=== PATIENT | female | born 1925 | race Caucasian/White ===

== ENCOUNTER 2017-11-27 18:42 | Emergency (ER) | payer MEDICARE, OTHER ==
[~2017-11-27] VITALS: Ht 167.6 cm; Wt 76.8 kg
[~2017-11-27 18:42] MED LIST: AMLODIPINE BESY10 MG PO; AMOXICILLIN500 M1 PO; ARICEPT 5 MG TAB5 MG PO; ASPIRIN325 PO; AZITHROMYCIN 2250 MG PO; CALCIUM 500 +1 EAC5 PO; CARDIZEM CD240 MG PO; CEFDINIR300 MG PO; CEFTIN 250250 MG/52 PO; COZAAR 25 MG TA25 M1 PO; CRANBERRY250 MG PO; DEPAKOTE 250MG250 M1 PO; DONEPEZIL HCL 55 M1 PO; FIBER-LAX625 MG PO; FLORASTOR250 MG PO; KEPPRA 500 MG500 M1 PO; LEVAQUIN 250 M250 MG PO; NORCO 5-325 TA1 EACH PO; NORTRIPTYLINE H25 M3 PO; PAMELOR25 MG PO; RISPERDAL0.5 MG PO; SENOKOT-S1 TA1 PO; TYLENOL325 MG PO; WELLBUTRIN 75 M75 M1 PO
[2017-11-27 19:12] LABS: ABSOLUTE BASOPHILS 0.1 thou/uL (0.0-0.2); ABSOLUTE EOSINOPHILS 0.4 thou/uL (0.0-0.7); ABSOLUTE LYMPHOCYTES 1.6 thou/uL (0.8-5.3); ABSOLUTE MONOCYTES 0.6 thou/uL (0.0-1.2); ABSOLUTE NEUTROPHILS 3.8 thou/uL (1.6-8.1); BASOPHILS 0.9 %; EOSINOPHILS 5.6 %; HEMATOCRIT 40.4 % (37.0-47.0); HEMOGLOBIN 13.1 gm/dL (12.0-15.0); LYMPHOCYTES 24.6 %; MCH 28.2 pg (26.0-34.0); MCHC 32.5 g/dL (28.0-37.0); MCV 86.8 fL (80.0-100.0); MONOCYTES 9.9 %; MPV 7.5 fl. (7.2-11.1); NUCLEATED RBCS 0 /100WBC; PLATELET COUNT* 281 thou/uL (150-400); RBC 4.65 mil/uL (4.20-5.00); RDW-CV 15.3 % (10.5-14.5); WBC 6.5 thou/uL (4.0-11.0)
[2017-11-27 19:17] LABS: ANION GAP 5 mmol/L (7-16); BUN 19 mg/dL (7-18); CALCIUM 9.3 mg/dL (8.5-10.1); CHLORIDE 107 mmol/L (98-107); CO2 31 mmol/L (21-32); GLUCOSE 154 mg/dL (70-99); POTASSIUM 3.6 mmol/L (3.5-5.1); SODIUM 143 mmol/L (136-145)
[2017-11-27 19:24] LABS: ALBUMIN 3.2 g/dL (3.4-5.0); ALKALINE PHOSPHATASE 128 U/L (46-116); SGOT 17 U/L (15-37); SGPT 18 U/L (30-65); TOTAL BILIRUBIN 0.1 mg/dL (<0.1-1.0); TOTAL PROTEIN 7.2 g/dL (6.4-8.2); TROPONIN-I LEVEL <0.06 ng/mL (<0.06)
[2017-11-27 19:26] LABS: SALICYLATE < 2.8 mg/dL (2.8-20.0)
[2017-11-27 19:32] LABS: URINE BILIRUBIN NEGATIVE (Negative); URINE BLOOD NEGATIVE (Negative); URINE CLARITY CLEAR; URINE COLOR YELLOW; URINE GLUCOSE-RANDOM NEGATIVE (Negative); URINE KETONES NEGATIVE (Negative); URINE LEUKOCYTES-REFLEX NEGATIVE (Negative); URINE NITRITE-REFLEX POSITIVE (Negative); URINE PROTEIN NEGATIVE (Negative); URINE SPECIFIC GRAVITY 1.025 (1.005-1.030); URINE UROBILINOGEN 0.2 E.U./dl (0.2-1.0)
[2017-11-27 19:34] LABS: ACETAMINOPHEN < 2 ug/mL (10-30); ALCOHOL < 10 mg/dL (<10)
[2017-11-27 19:34] LABS: AMP/METHAMP Negative (Negative); BARBITURATES Negative (Negative); BENZODIAZEPINES Negative (Negative); COCAINE Negative (Negative); METHADONE Negative (Negative); OPIATES POSITIVE (Negative); PCP Negative (Negative); THC Negative (Negative)
[2017-11-27 19:36] LABS: BACTERIA-REFLEX >30 Many /HPF (None Seen); CASTS None Seen /LPF (None Seen); CRYSTALS None Seen /LPF (None Seen); MUCUS None Seen strn/LPF (None Seen); SQUAMOUS NONE SEEN /LPF (0-3); URINE RBC None Seen /HPF (0-2); URINE WBC-REFLEX 0-5 Rare /HPF (0-5)
[2017-11-27] MEDS ORDERED: AUGMENTIN 500-1 EACH PO ×2 (19:49→19:56)
[2017-11-27] MEDS ORDERED: CEFDINIR300 MG PO ×2 (19:59→20:01)
[2017-11-27 20:27] VITALS: BP 144/55
--- NOTE | 2017-11-28 12:31 | EKG ---
[place] [address] ELECTROCARDIOGRAM REPORT Name: MAMIE CHICAS [id number] Admission: 11/27/17 Attend Phys: Discharge: 11/27/17 Date of : 12/24/[birth year] Report #: [id number] THIS REPORT FOR: //name// [facility] ED Test Date: 2017-11-27 Test Time: 19:09:48 Pat Name: MAMIE CHICAS Department: Room: Gender: F Director Of Orthopedics: MARCELLE : 1925 Requested By: Erasto Lepe Order Number: [id number] MD: Valentino Spence Measurements Intervals Ullin Rate: 69 P: -45 OK: 228 QRS: 1 QRSD: 89 T: 132 QT: 424 QTc: 455 Interpretive Statements Sinus or ectopic atrial rhythm Prolonged OK interval LVH with secondary repolarization abnormality Compared to ECG 12/05/2016 18:29:23 First degree AV block now present Left ventricular hypertrophy now present Early repolarization now present T-wave abnormality no longer present Possible ischemia no longer present Electronically Signed On 11-28-2017 12:31:17 CDT by Valentino Spence [email or web address] <ELECTRONICALLY SIGNED> By: Valentino Spence MD, FACC 11/28/17 1231 08 190 Valentino Spence MD, FACC /EPI
== END 2017-11-27 21:40 | disposition home or self-care (01) ==
LOC: M.ERS 18:42
PROVIDERS: Family Medicine
DX: N39.0 Urinary tract infection, site not specified (principal); R45.851 Suicidal ideations; F03.90 Unspecified dementia, unspecified severity, without behavioral disturbance, psychotic disturbance, mood disturbance, and anxiety; K21.9 Gastro-esophageal reflux disease without esophagitis; I10 Essential (primary) hypertension; F32.9 Major depressive disorder, single episode, unspecified; Z88.5 Allergy status to narcotic agent; Z88.8 Allergy status to other drugs, medicaments and biological substances